=== PATIENT | female | born 1955 | race Caucasian/White ===

== ENCOUNTER 2017-08-08 14:47 | Emergency (ER) | payer MEDICARE, MEDICAID ==
--- NOTE | 2017-08-08 17:23 | RAD ---
RIGHT FOOT THREE VIEWS: CLINICAL HISTORY: Trauma. Fall with right foot injury and pain. FINDINGS: There is a mildly displaced fracture of the great toe proximal phalanx, mid diaphyseal region, with a ssociated cortical buckling at the medial base. No dislocation at the Lisfranc joint. There is osse ous demineralization and scattered osseous degenerative change. There is soft tissue prominence at t he forefoot. IMPRESSION: Fracture of the great toe proximal phalanx without significant displacement. POS: JORGE A
== END 2017-08-08 16:26 | disposition home or self-care (01) ==
LOC: SCSER 14:47
DX: S92.411A Displaced fracture of proximal phalanx of right great toe, initial encounter for closed fracture (principal); E78.5 Hyperlipidemia, unspecified; I10 Essential (primary) hypertension; W19.XXXA Unspecified fall, initial encounter

== ENCOUNTER 2019-04-30 12:16 | Outpatient (CLI) | payer MEDICARE, MEDICAID ==
--- NOTE | 2019-04-30 13:36 | MRI ---
EXAM: MRI thoracic spine without contrast HISTORY: Closed fracture of T11 with delayed healing. Chronic back pain. COMPARISON: None TECHNIQUE: Multiplanar multisequence MR images were obtained of the thoracic spine without contrast. FINDINGS: There is chronic wedge compression deformity of the T11 vertebral body with approximately 75% anterio r height loss. The other vertebral bodies and intervertebral discs demonstrate normal height and alignment without fracture or subluxation. Anterior osteophytes are seen throughout the thoracic spin e. The visualized cord demonstrates normal signal throughout. The prevertebral soft tissues are unremarkable. No paraspinal soft tissue abnormality is seen. T1/2: No significant posterior bulge or protrusion. No posterior facet arthrosis. No central canal stenosis. No neural foraminal stenosis. T2/3: No significant posterior bulge or protrusion. No posterior facet arthrosis. No central canal stenosis. No neural foraminal stenosis. T3/4: No significant posterior bulge or protrusion. No posterior facet arthrosis. No central canal stenosis. No neural foraminal stenosis. T4/5: No significant posterior bulge or protrusion. No posterior facet arthrosis. No central canal stenosis. No neural foraminal stenosis. T5/6: No significant posterior bulge or protrusion. No posterior facet arthrosis. No central canal stenosis. No neural foraminal stenosis. T6/7: No significant posterior bulge or protrusion. No posterior facet arthrosis. No central canal stenosis. No neural foraminal stenosis. T7/8: No significant posterior bulge or protrusion. No posterior facet arthrosis. No central canal stenosis. No neural foraminal stenosis. T8/9: No significant posterior bulge or protrusion. No posterior facet arthrosis. No central canal stenosis. No neural foraminal stenosis. T9/10: No significant posterior bulge or protrusion. No posterior facet arthrosis. No central canal stenosis. No neural foraminal stenosis. T10/11: No significant posterior bulge or protrusion. No posterior facet arthrosis. No central norman l stenosis. No neural foraminal stenosis. T11/12: No significant posterior bulge or protrusion. No posterior facet arthrosis. No central norman l stenosis. No neural foraminal stenosis. T12/L1: No significant posterior bulge or protrusion. No posterior facet arthrosis. No central norman l stenosis. No neural foraminal stenosis. IMPRESSION: Chronic healed T11 compression fracture
== END 2019-04-30 12:17 | disposition home or self-care (01) ==
LOC: SCSMRI 12:16
PROVIDERS: ATTEND Family Medicine
DX: S22.089G Unspecified fracture of T11-T12 vertebra, subsequent encounter for fracture with delayed healing (principal)
CPT/HCPCS: 72146

== ENCOUNTER 2022-08-30 13:04 | Outpatient (CLI) | payer MEDICARE, OTHER | END 2022-08-30 13:05 | disposition home or self-care (01) | LOC: SCSRAD 13:04 | PROVIDERS: ATTEND Family Medicine | DX: S72.002D Fracture of unspecified part of neck of left femur, subsequent encounter for closed fracture with routine healing (principal) ==